=== PATIENT | male | born 1960 | race African-American/Black ===

== ENCOUNTER 2016-06-18 09:15 | Emergency (ER) | payer OTHER, MEDICARE ==
[~2016-06-18] VITALS: Ht 172.7 cm; Wt 87.1 kg
[2016-06-18] MEDS ORDERED: CHLORTHALIDONE50 M1 PO (09:43)
[2016-06-18] MEDS ORDERED: AMLODIPINE BESY10 M1 PO (09:43)
[2016-06-18] MEDS ORDERED: DOCUSATE SODIU100 M3 PO (09:43)
[2016-06-18] MEDS ORDERED: HYDROCHLOROTHIA25 M1 PO (09:44)
[2016-06-18] MEDS ORDERED: KLOR-CON M2020 ME1 PO (09:44)
[2016-06-18] MEDS ORDERED: LISINOPRIL40 M1 PO (09:45)
--- NOTE | 2016-06-18 10:29 | ED GENERAL ADULT ---
History of Present Illness General Chief Complaint: General Adult Stated Complaint: PT NOT TAKING MEDS ELAVATED BP/SEEN AT [facility] 06/17 Source: patient, old records, caregiver Exam Limitations: poor historian Vital Signs & Intake/Output Vital Signs & Intake/Output Vital Signs Date Time Temp Pulse Resp B/P Pulse O2 O2 Flow FiO2 Ox Delivery Rate 06/18 1121 97.8 85 16 176/107 06/18 1121 97.8 85 16 176/107 06/18 1121 97.8 85 16 176/107 06/18 0922 97.8 85 16 176/107 98 Room Air Allergies Coded Allergies: NO KNOWN ALLERGIES (05/25/13) Reconcile Medications Amlodipine Besylate 10 MG TABLET 1 TAB PO DAILY HEART (Reported) Chlorthalidone 50 MG TABLET 1 TAB PO DAILY HEART (Reported) Docusate Sodium 100 MG CAPSULE 1 CAP PO BID PRN CONSTIPATION (Reported) Hydrochlorothiazide 25 MG TABLET 1 TAB PO DAILY WATER PILL (Reported) Lisinopril 40 MG TABLET 1 TAB PO DAILY HEART (Reported) Potassium Chloride (Klor-Con M20) 20 MEQ TAB.ER.PRT 1 TAB PO DAILY SUPPLEMENT (Reported) Triage Note: PT HERE WITH HIS DIRECTOR OF MATERNITY SERVICES. PER DIRECTOR OF MATERNITY SERVICES PT HAS NOT BEEN MEDICATED FOR OVER A MONTH. PT IS SUPPOSE TO TAKE HTN MEDS AND PSYCH MEDS AND HAS NOT. Triage Nurses Notes Reviewed? yes Onset: 1 month Duration: week(s):, constant, continues in ED Timing: recent history Injury Environment: home Severity: mild No Modifying Factors: none HPI: Patient is brought by his correctional casework specialist because he has been noncompliant with his medications. He was seen at [facility] with psychiatry evaluation. He reports leaving to be out early and returning late just be out in about. quality compliance manager reports difficulty synchronizing time of nursing visits for medication compliance. Past History Travel History Traveled to [place] past 21 day No Medical History Any Pertinent Medical History? see below for history Cardiovascular: hypertension Psychiatric: schizophrenia Surgical History Surgical History: non-contributory Psychosocial History Who do you live with Patient/Self Services at Home Nursing What is your primary language French Tobacco Use: Never used ETOH Use: denies use Illicit Drug Use: denies illicit drug use Family History Hx Contributory? No Review of Systems Review of Systems Constitutional: Reports: no symptoms. EENTM: Reports: no symptoms. Respiratory: Reports: no symptoms. Cardiovascular: Reports: no symptoms. GI: Reports: no symptoms. Genitourinary: Reports: no symptoms. Musculoskeletal: Reports: no symptoms. Skin: Reports: no symptoms. Neurological/Psychological: Reports: no symptoms. Hematologic/Endocrine: Reports: no symptoms. Immunologic/Allergic: Reports: no symptoms. All Other Systems: Reviewed and Negative Physical Exam Physical Exam General Appearance: well developed/nourished, alert, awake, comfortable Head: atraumatic, normal appearance Eyes: Bilateral: normal appearance, PERRL, EOMI. Ears, Nose, Throat: normal pharynx, normal ENT inspection Neck: normal inspection, supple, full range of motion, no midline tenderness Respiratory: normal breath sounds, chest non-tender, no respiratory distress, quiet respiration, lungs clear Cardiovascular: regular rate/rhythm, normal peripheral pulses, norml femoral pulses equa Peripheral Pulses: 4+ carotid (R), 4+ carotid (L) Gastrointestinal: normal bowel sounds, soft, non-tender, no organomegaly Back: normal inspection, normal range of motion Extremities: normal inspection, normal capillary refill, normal range of motion, no edema Neurologic/Psych: no motor/sensory deficits, awake, alert, normal gait, normal mood/affect, radiology services manager II-XII nml as tested Reflexes: 2+: bicep (R), bicep (L). Skin: intact, normal color, warm/dry Lymphatic: no anterior cervical rama Comments: Case management psychiatry involved. Called to civil attorney patient cannot be forced to take medications without court order mandate. Arrangements should be made for nurses to coincide with presence of patient. Core Measures ACS in differential dx? No CVA/TIA Diagnosis: No Severe Sepsis Present: No Septic Shock Present: No Progress Differential Diagnoses I considered the following diagnoses in my evaluation of the patient: medication non compliance Plan of Care: timing of VNA and patient Initial ED EKG: none Departure Departure Time of Disposition: 1157 Disposition: HOME OR SELF CARE Condition: Stable Clinical Impression Primary Impression: Noncompliance with medication regimen Referrals: PRECIOUS PEREZ,PIEDAD Farias (PCP/Family) Departure Forms: General Discharge Information Critical Care Note Critical Care Note Critical Care Time: non-applicable
[2016-06-18 12:05] VITALS: BP 182/96
== END 2016-06-18 12:05 ==
LOC: ERH 09:15
DX: Z91.14 Patient's other noncompliance with medication regimen (principal)
CPT/HCPCS: J7508